=== PATIENT | male | born 1960 ===

== ENCOUNTER 2017-03-26 06:42 | Day surgery (SDC) | payer OTHER ==
[2017-03-22 10:25] VITALS: BMI 26.6
[2017-03-26] MEDS ORDERED: Midazolam 2 MG/2 ML VIAL ONE (07:40)
[2017-03-26] MEDS ORDERED: Propofol 10 mg/ml Inj (20 ML) ONE (07:40)
[2017-03-26] MEDS ORDERED: Rocuronium 10 mg/ml (5 ml) ONE (07:42)
[2017-03-26] MEDS ORDERED: Phenylephrine 10 mg/ml Inj ONE (07:43)
[2017-03-26] MEDS ORDERED: ePHEDrine 50 mg/ml Inj ONE (07:43)
[2017-03-26] MEDS: Bupivacaine/Epi 0.25%-1:200,000 10 ml PF inj IJ ONE ×2 (08:15→08:39)
[2017-03-26] MEDS ORDERED: Lactated Ringer's 1,000 ML IV ONE ×2 (08:15→11:00)
[2017-03-26] MEDS: Lidocaine 1% Inj (20ml) ONE ×2 (08:15→08:40)
[2017-03-26] MEDS ORDERED: Bupivacaine-Epi 0.25%-1:200,000 PF Inj ONE (08:22)
[2017-03-26] MEDS: ceFAZolin IV 2 gm in Dextrose 2 GM/50 ML BAG IVPB ONE ×2 (08:30→08:39)
[2017-03-26] MEDS ORDERED: Neostigmine Methylsulfate 3mg/3ml Syringe IV ONE (09:17)
--- NOTE | 2017-03-26 09:59 | PCM.SURG1 ---
Surgeon's Initial Post Op Note - Surgeon's Notes Surgeon: Wale Gathering Machine Feeder: Opal Bobby PGY1, Anai MS3 Type of Anesthesia: General Endo, Local Pre-Operative Diagnosis: Bleeding Hemorrhoids, Right Posterior Forearm Mass Operative Findings: see operative report Post-Operative Diagnosis: Same Operation Performed: 3 Column hemorrhoidectomy; Excision of Right posterior forearm mass Specimen/Specimens Removed: 3 columns of Hemorrhoids; Right forearm mass Estimated Blood Loss: EBL {In ML}: 20 Blood Products Given: N/A Drains Used: No Drains Post-Op Condition: Good Date of Surgery/Procedure: 03/26/17 Time of Surgery/Procedure: 10:01
[2017-03-26] MEDS: HYDROmorphone 0.5 mg/0.5 ml ISec IVP PRN ×3 (10:27→11:30)
[2017-03-26 12:29] VITALS: RESP 18
[2017-03-26 14:56] VITALS: BP 125/62; PULSE 88; TEMP 98.6; O2SAT 98
--- NOTE | 2017-03-26 19:12 | OP ---
PROCEDURE DATE: 03/26/2017 PREOPERATIVE DIAGNOSES: 1. Bleeding internal hemorrhoids. 2. Lipoma of the right forearm. POSTOPERATIVE DIAGNOSES: 1. Grade III right anterior and right posterior bleeding hemorrhoid. 2. Grade II left lateral hemorrhoid. 3. Lipoma of the right forearm. PROCEDURES: 1. Three-column hemorrhoidectomy. 2. Excision of the lipoma of the right forearm. 3. Layer closure of the wound, approximately 3 x 1 cm in size. SURGEON: José Luis Echevarria MD SOLAR PHOTOVOLTAIC DESIGNER: MARIA D Bobby and Zeus Joseph, PGY-1 resident. TYPE OF ANESTHESIA: General endotracheal tube anesthesia. ESTIMATED BLOOD LOSS: Around 20 mL for both procedure together. COMPLICATIONS: None. DRAINS: None. PATHOLOGY: 1. The right anterior, right posterior and left lateral hemorrhoid was sent for the pathology. 2. Lipoma of the right forearm. INTRAOPERATIVE FINDINGS: The patient had right anterior and posterior grade III hemorrhoid with superficial ulceration and the patient also had a grade II left lateral hemorrhoid and the lipoma of the right forearm was approximately 3 x 2 cm size. DESCRIPTION OF PROCEDURE: On intraoperative steps, this is a 56-year-old male who was diagnosed with bleeding internal hemorrhoid and the patient recently had severe anemia as well as a blood transfusion and after colonoscopy, the patient was found to have internal hemorrhoids and the patient was seen in my office and was consented for the hemorrhoidectomy as well as the lipoma excision of the right forearm and the patient was brought to the OR, placed supine on the operating table. After induction of the anesthesia, the patient was placed in a prone jackknife position. The butt cheek and the perineal area was prepped and draped in the usual sterile fashion. At the same time, the right forearm was also prepped and draped in a sterile fashion and now the digital rectal exam was done and the patient was found to have right anterior and posterior hemorrhoid as well as small left lateral hemorrhoid. The elliptical incision was made on mucocutaneous junction. The dissection was carried down into the avascular space between the hemorrhoid as well as internal sphincter and the dissection was carried down up to the pedicle of the hemorrhoid on the right side and the pedicle was ligated with 0 Vicryl as well as a 2-0 Vicryl x2 and in continuous fashion, wound was closed and now the similar elliptical incision was made on the left lateral hemorrhoid and the dissection was carried down up to the pedicle. The hemorrhoid was ligated two times with 0 Vicryl as well as 2-0 Vicryl and the wound was closed in a continuous fashion. There was a proper hemostasis in each and every part of the procedure. The finger dilatation of the anal opening was done and there was no evidence of stenosis and after proper hemostasis, the Surgicel covered gauze was placed as a packing and vaginal dressing was applied. The patient tolerated the procedure well. Count of instruments and gauze was correct. There was no apparent complication. Now the right forearm lipoma incision was made; after making incision of approximately 2 cm upper and lower flap was created, the dissection was carried down into the subcutaneous tissue and lipoma was completely excised and it was sent to the table for the pathology. There was a proper hemostasis and the wound was closed in two layers, the subcu with a 2-0 Vicryl, skin with a 4-0 Monocryl and dry sterile dressing was applied. The patient tolerated the procedure well. Count of instruments and gauze was correct. There was no apparent complication. The patient was extubated to OR, sent to the postanesthesia care unit in stable condition. José Luis Echevarria MD
== END 2017-03-26 15:35 | disposition home or self-care (01) ==
LOC: C.SDS 06:42
PROVIDERS: ATTEND Surgery Surgical Critical Care
DX: K64.2 Third degree hemorrhoids (principal); K64.1 Second degree hemorrhoids; D17.21 Benign lipomatous neoplasm of skin and subcutaneous tissue of right arm; D64.9 Anemia, unspecified
CPT/HCPCS: 11403; 12032; 46260; 88304; J0690; J1170; J2001; J2250; J2370; J2704; J2710; J3010; J7120